=== PATIENT | female | born 1985 | race Caucasian/White ===

== ENCOUNTER 2023-05-05 15:01 | Emergency (ER) | payer OTHER ==
[~2023-05-05] VITALS: Ht 157.5 cm; Wt 60.3 kg
[2023-05-05] MEDS ORDERED: FOLIC ACID20 MG (16:01)
[2023-05-05] MEDS ORDERED: DICLEGIS DR 101 EACH PO (21:08)
[2023-05-05] MEDS ORDERED: PEPCID AC20 MG PO (21:08)
[2023-05-05] MEDS ORDERED: ZOFRAN8 MG PO (21:08)
== END 2023-05-05 21:16 | disposition home or self-care (01) ==
LOC: ER 15:01
DX: O21.9 Vomiting of pregnancy, unspecified (principal); Z3A.01 Less than 8 weeks gestation of pregnancy

== ENCOUNTER 2023-07-26 22:12 | Outpatient (CLI) | payer OTHER | END 2023-07-27 10:15 | disposition home or self-care (01) | LOC: OBS/DEL 22:12 | PROVIDERS: ATTEND Obstetrics & Gynecology | DX: O26.892 Other specified pregnancy related conditions, second trimester (principal); R10.2 Pelvic and perineal pain; Z3A.19 19 weeks gestation of pregnancy ==

== ENCOUNTER → 2023-07-26 | Emergency (ER) | payer OTHER ==
[~2023-07-26] MED LIST: DICLEGIS DR 101 EACH PO; FOLIC ACID20 MG; PEPCID AC20 MG PO; ZOFRAN8 MG PO
== END | disposition left against medical advice (07) ==
LOC: ER 19:44
DX: Z53.21 Procedure and treatment not carried out due to patient leaving prior to being seen by health care provider (principal)

== ENCOUNTER 2023-10-26 15:48 | Outpatient (CLI) | payer OTHER | END 2023-10-26 16:55 | disposition home or self-care (01) | LOC: NST 15:48 | PROVIDERS: ATTEND Obstetrics & Gynecology | DX: Z34.83 Encounter for supervision of other normal pregnancy, third trimester (principal) ==

== ENCOUNTER 2023-12-08 19:29 | Inpatient (IN) | payer OTHER ==
[~2023-12-08] VITALS: Ht 157.5 cm; Wt 68.5 kg
[2023-12-08 20:00] LABS: HEMATOCRIT 37.3 % (36.0-45.00); HEMOGLOBIN 12.5 g/dL (12.0-15.00); MEAN CORPUSCULAR HEMOGLOBIN 25.8 pg (27.00-32.0); MEAN CORPUSCULAR HGB CONC 33.5 g/dl (32.0-36.0); PLATELET COUNT 304 K/uL (150-450); RED BLOOD COUNT 4.84 M/uL (4.00-6.00); RED CELL DISTRIBUTION WIDTH 18.5 % (11.5-14.5)
[2023-12-08] MEDS ORDERED: RINGERS SOLUTION,LACTATED 1,000 ML IV SCH (20:00)
[2023-12-08 20:24] LABS: INR 0.95; PARTIAL THROMBOPLASTIN TIME 31.5 SECONDS (22.0-34.0)
[2023-12-08] MEDS ORDERED: PRENATABS RX T1 EACH PO (20:26)
[2023-12-08 20:37] LABS: ALBUMIN 2.9 gm/dL (3.4-5.0); BILIRUBIN TOTAL 0.75 mg/dL (0.3-1.2); CREATININE SERUM 0.44 mg/dL (0.55-1.02); GFR 160.9; GLOBULINA 3.3 G/DL (2.4-3.5); POTASSIUM 3.3 mEq/L (3.5-5.1); TOTAL PROTEIN 6.2 gm/dL (6.4-8.2)
== END 2023-12-09 09:45 | disposition home or self-care (01) | DRG 833 ==
LOC: LDR 19:29 → OB/GYN 12-11 16:38
PROVIDERS: Obstetrics & Gynecology; ADMIT Obstetrics & Gynecology; ATTEND Obstetrics & Gynecology
PROC: 4A1HXCZ Monitoring of Products of Conception, Cardiac Rate, External Approach (ICD-10-PCS; principal; 2023-12-08)
DX: O47.1 False labor at or after 37 completed weeks of gestation (principal); Z3A.38 38 weeks gestation of pregnancy; Z20.822 Contact with and (suspected) exposure to COVID-19

== ENCOUNTER 2023-12-11 08:00 | Inpatient (IN) | payer OTHER ==
[~2023-12-11] VITALS: Ht 157.5 cm; Wt 68.5 kg
[~2023-12-11 08:00] MED LIST changes: +PRENATABS RX T1 EACH PO
[2023-12-11] MEDS ORDERED: RINGERS SOLUTION,LACTATED 1,000 ML IV SCH (08:15)
[2023-12-11 08:51] LABS: HEMATOCRIT 35.5 % (36.0-45.00); MEAN CELL VOLUME 77.8 fL (80.00-100.00); MEAN CORPUSCULAR HEMOGLOBIN 26.2 pg (27.00-32.0); MEAN CORPUSCULAR HGB CONC 33.6 g/dl (32.0-36.0); PLATELET COUNT 275 K/uL (150-450); RED BLOOD COUNT 4.56 M/uL (4.00-6.00); RED CELL DISTRIBUTION WIDTH 17.7 % (11.5-14.5)
[2023-12-11 08:56] LABS: URINE APPEARANCE Cloudy; URINE BILIRRUBIN Negative (NEGATIVE); URINE BLOOD Negative; URINE COLOR Yellow; URINE GLUCOSE Negative (NEGATIVE); URINE LEUKOCYTE Trace; URINE NITRATE Negative; URINE PROTEIN Negative (NEGATIVE)
[2023-12-11 08:57] LABS: URINE BACTERIA 1205.8 uL (0.0-1933); URINE EPITHELIAL CELLS 61.3 uL (0.0-38.8); URINE RBC 2.1 uL (0.0-20.8)
[2023-12-11 09:13] LABS: URINE WBC 53.6 uL (0.0-23.2)
[2023-12-11 09:24] LABS: INR < 0.93; PARTIAL THROMBOPLASTIN TIME 30.2 SECONDS (22.0-34.0); PROTHROMBIN TIME 9.8 SECONDS (9.0-11.5)
[2023-12-11 09:33] LABS: ALBUMIN 2.7 gm/dL (3.4-5.0); BILIRUBIN TOTAL 0.58 mg/dL (0.3-1.2); CALCIUM 8.8 mg/dL (8.5-10.1); CREATININE SERUM 0.36 mg/dL (0.55-1.02); GFR 202.82; GLOBULINA 3.1 G/DL (2.4-3.5); POTASSIUM 4.1 mEq/L (3.5-5.1); TOTAL PROTEIN 5.8 gm/dL (6.4-8.2)
[2023-12-11] MEDS ORDERED: MORPHINE SULFATE 4 MG/ML VIAL IV ONE (15:45)
[2023-12-11] MEDS ORDERED: CEFAZOLIN SODIUM 1,000 MG VIAL ONE (16:51)
[2023-12-11] MEDS ORDERED: CEFAZOLIN SODIUM 1,000 MG VIAL IV STA (16:53)
[2023-12-11] MEDS ORDERED: ERYTHROMYCIN BASE 3.5 GM OINT...G. OP ONE (17:10)
[2023-12-11] MEDS ORDERED: OXYTOCIN 10 UNITS/ML VIAL ONE (17:10)
[2023-12-11] MEDS ORDERED: MEPERIDINE HCL/PF 50 MG/ML VIAL IM PRN (18:15)
[2023-12-11] MEDS ORDERED: OXYTOCIN 1,000 ML IV SCH (18:15)
[2023-12-11] MEDS ORDERED: IBUprofen 400 MG TABLET PO PRN (18:15)
[2023-12-12] MEDS ORDERED: OxyCODONE HCL/APAP UD (PERCOCET) PO PRN (08:00)
[2023-12-12 11:09] LABS: HEMATOCRIT 36.1 % (36.0-45.00); HEMOGLOBIN 11.8 g/dL (12.0-15.00); MEAN CORPUSCULAR HEMOGLOBIN 25.6 pg (27.00-32.0); MEAN CORPUSCULAR HGB CONC 32.8 g/dl (32.0-36.0); PLATELET COUNT 299 K/uL (150-450); RED BLOOD COUNT 4.63 M/uL (4.00-6.00); RED CELL DISTRIBUTION WIDTH 17.8 % (11.5-14.5)
== END 2023-12-14 15:12 | disposition home or self-care (01) | DRG 785 ==
LOC: LDR 08:00 → OB/GYN 08:00 → LDR 12:36 → O/R 16:58 → OB/GYN 18:23
PROVIDERS: ADMIT Obstetrics & Gynecology; ATTEND Obstetrics & Gynecology
PROC: 0UB70ZZ Excision of Bilateral Fallopian Tubes, Open Approach (ICD-10-PCS; 2023-12-11)
PROC: 4A1HXCZ Monitoring of Products of Conception, Cardiac Rate, External Approach (ICD-10-PCS; 2023-12-11)
PROC: 10D00Z1 Extraction of Products of Conception, Low, Open Approach (ICD-10-PCS; principal; 2023-12-11 17:30)
DX: O33.8 Maternal care for disproportion of other origin (principal); Z3A.39 39 weeks gestation of pregnancy; Z37.0 Single live birth; Z20.822 Contact with and (suspected) exposure to COVID-19; Z30.2 Encounter for sterilization

== ENCOUNTER 2024-10-09 15:26 | Emergency (ER) | payer OTHER ==
[~2024-10-09] VITALS: Ht 157.5 cm; Wt 56.7 kg
[2024-10-09 15:58] VITALS: BP 103/67; O2SAT 97
[2024-10-09] MEDS ORDERED: MECLIZINE HCL 25 MG TABLET PO STA (17:12)
[2024-10-09] MEDS ORDERED: METOCLOPRAMIDE HCL 10 MG TABLET PO STA (17:12)
[2024-10-09] MEDS ORDERED: MECLIZINE HCL 25 MG TABLET PO ONE (17:15)
[2024-10-09 17:49] LABS: HEMATOCRIT 39.3 % (36.0-45.00); HEMOGLOBIN 13.1 g/dL (12.0-15.00); MEAN CELL VOLUME 82.9 fL (80.00-100.00); MEAN CORPUSCULAR HEMOGLOBIN 27.6 pg (27.00-32.0); MEAN CORPUSCULAR HGB CONC 33.3 g/dl (32.0-36.0); PLATELET COUNT 341 K/uL (150-450); RED BLOOD COUNT 4.74 M/uL (4.00-6.00); RED CELL DISTRIBUTION WIDTH 13.6 % (11.5-14.5)
== END 2024-10-09 18:51 | disposition home or self-care (01) ==
LOC: ER 15:29
DX: H81.10 Benign paroxysmal vertigo, unspecified ear (principal)